=== PATIENT | female | born 1955 | race Caucasian/White ===

== ENCOUNTER → 2019-12-29 15:11 | Outpatient (CLI) | payer OTHER, SELFPAY ==
--- NOTE | ~2019-12-29 | MM_ITS ---
EXAMINATION: MM screening will BI w angela HISTORY: Screening mammogram TECHNIQUE: Craniocaudal and mediolateral oblique 3-D tomosynthesis images were obtained and synthetic 2-D images were generated. CAD analysis was submitted and interpreted. COMPARISON: Comparison to multiple prior studies sequentially, with oldest reviewed study dated 02/21. BREAST PARENCHYMAL COMPOSITION: There are scattered areas of fibroglandular density. FINDINGS: There is no evidence of suspicious mass, calcification, or architectural distortion to sugg est malignancy in either breast. There has been no suspicious interval change. IMPRESSION: 1. No mammographic evidence of malignancy. 2. Recommend routine screening mammography in one year. Routine yearly screening mammogram and regular clinical breast examination are recommended. Reviewed, dictated and finalized at location A. 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
== END ==
PROVIDERS: Visit Provider Nurse Practitioner Family
DX: Z12.31 Encounter for screening mammogram for malignant neoplasm of breast (principal)
CPT/HCPCS: 77063; 77067

== ENCOUNTER → 2020-10-20 10:36 | Outpatient (CLI) | payer OTHER, SELFPAY ==
--- NOTE | ~2020-10-20 | XR_ITS ---
EXAMINATION: XR chest 2V 10/20/2020 10:57 INDICATION: Positive TB test PROCEDURE: 2 view chest COMPARISON: 06/19/2018 FINDINGS: The lungs are clear. The cardiomediastinal silhouette is within normal limits. There are no pleural effusions. There is no pneumothorax suspected. IMPRESSION: 1: NO ACUTE CARDIOPULMONARY DISEASE. Reviewed, dictated and finalized at location A. 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
== END ==
DX: R76.12 Nonspecific reaction to cell mediated immunity measurement of gamma interferon antigen response without active tuberculosis (principal)
CPT/HCPCS: 71046

== ENCOUNTER 2021-10-21 15:08 | Emergency (ER) | payer OTHER, SELFPAY ==
[2021-10-21 15:20] VITALS: BP 141/88; PULSE 108; RESP 20; TEMP 38.1; O2SAT 96
--- NOTE | 2021-10-21 15:38 | ED.DENTAL ---
HPI - Dental/Oral General Chief complaint: Dental/Oral Stated complaint: Sore Tongue,Mouth Time Seen by Provider: 10/21/21 15:35 Source: patient Mode of arrival: ambulatory Limitations: no limitations History of Present Illness HPI Narrative: Jamila is a 66-year-old female patient who ambulated with a cane into the [facility]. Patient states for the last 2 days she has developed thrush-like symptoms. Patient states she has white patches on her tongue and mouth. Patient states she has had thrush 4 times in the last year. Patient has rheumatoid arthritis. 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 EYES: Denies visual changes, redness, or discharge. ENT: Denies rhinorrhea, congestion, sore throat, or otalgia.; +Spots and soreness to tongue CARDIOVASCULAR: Denies chest pain, palpitations, or edema. RESPIRATORY: Denies cough or dyspnea. GASTROINTESTINAL: Denies abdominal pain, nausea, vomiting, or diarrhea. GENITOURINARY: Denies dysuria or hematuria. SKIN: Denies rash, itching, or wounds. MUSCULOSKELETAL: Denies back pain, joint pain, or myalgia. NEUROLOGIC: Denies headache, numbness, tingling, or weakness. PSYCH: Denies depression or anxiety. All systems reviewed & are unremarkable except as noted in HPI and below PMFSH Family History Family History Grandparent Carcinoma of colon Family history of heart disease in male family member before age 55 Father Family history of type 2 diabetes mellitus Family history of heart disease in male family member before age 55 Mother Family history of diabetes mellitus in first degree relative Family history of heart disease in male family member before age 55 Other Diabetes mellitus Hypertension Social History Social History Smoking status: Former smoker Smoking end date: 11/05/96 Alcohol intake: current Comments At time of signature, I have reviewed and agree with nursing past medical, surgical, social and family history unless otherwise noted. Please see nursing chart for further information. There is no relevant family history pertinent to the presenting complaint Exam Narrative: GENERAL: Well-appearing, well-nourished, and in no acute distress. HEAD: Normocephalic, atraumatic. EYES: EOMI. No redness or drainage. Conjunctivae normal. ENT: Mucous membranes pink and moist. Nares clear. No rhinorrhea. TMs normal bilaterally. Throat normal. Uvula midline. Right raised lesions on tongue roof of mouth and gums NECK: Normal AROM. Supple. No lymphadenopathy. CHEST: No respiratory distress. Clear to auscultation. HEART: Regular rate and rhythm. No murmur appreciated. Normal peripheral pulses. ABDOMEN: Soft, nontender, nondistended, normal active bowel sounds. MUSCULOSKELETAL: No bony tenderness. EXTREMITIES: Normal range of motion. No edema. SKIN: Warm, dry, no rash. Capillary refill normal. Normal skin turgor. NEURO: No focal deficits. Alert and oriented x3. Gait steady. PSYCH: Normal affect. No signs of depression or anxiety. Course Vital Signs Vital signs: Vital Signs Temperature 38.1 C H 10/21/21 15:20 Pulse Rate 108 H 10/21/21 15:20 Respiratory Rate 20 10/21/21 15:20 Blood Pressure 141/88 H 10/21/21 15:20 Pulse Oximetry 96 10/21/21 15:20 Temperature 38.1 C H 10/21/21 15:20 Pulse Rate 108 H 10/21/21 15:20 Respiratory Rate 20 10/21/21 15:20 Blood Pressure 141/88 H 10/21/21 15:20 Pulse Oximetry 96 10/21/21 15:20 Reviewed MDM - D
== END 2021-10-21 15:48 | disposition home or self-care (01) ==
PROVIDERS: Emergency Provider Nurse Practitioner Family
DX: B37.0 Candidal stomatitis (principal); Z87.891 Personal history of nicotine dependence; I25.10 Atherosclerotic heart disease of native coronary artery without angina pectoris; E78.00 Pure hypercholesterolemia, unspecified; I10 Essential (primary) hypertension; E11.9 Type 2 diabetes mellitus without complications
CPT/HCPCS: 99213; G0463

== ENCOUNTER 2021-11-15 15:34 | Observation (INO) | payer OTHER, SELFPAY ==
--- NOTE | ~2021-11-15 | XR_ITS ---
EXAMINATION: XR chest 1V portable EXAM DATE: 11/15/2021 16:52 INDICATION: cough, fever,migrane x 2 months hx htn. TECHNIQUE: Portable AP frontal chest x-ray was obtained. Comparison is made to prior examination from 10/20/2020. FINDINGS: The lungs are clear. There are no pleural effusions. Cardiomediastinal silhouette is norm al. There is no pneumothorax suspected. The bones and soft tissues are unremarkable. IMPRESSION: No acute cardiopulmonary findings. Reviewed, dictated and finalized at location A. LFISH GROWER
[2021-11-15 15:40] VITALS: BP 145/69; PULSE 99; RESP 18; TEMP 38.1; O2SAT 94
--- NOTE | 2021-11-15 16:26 | ED.URI ---
HPI - URI/Sore Throat General Chief Complaint: Upper Respiratory Infection Stated Complaint: COUGH,SORE THROAT Time Seen by Provider: 11/15/21 16:04 Source: patient and RN notes reviewed Mode of arrival: ambulatory Limitations: no limitations History of Present Illness HPI Narrative: This is a 66 year old female who presents for evaluation of URI symptoms and she would like to know if she has covid or strep. Patient reports having productive cough for 2 months. This cough occurs daily but she reports it intermittently worsens. Last night he cough worsened and she was unable to sleep. She was prescribed singular, Augmentin and fluconazole 2 weeks ago. She developed runny nose, sore throat, headache last night. She was found to have fever in triage. She reports history of migraine headaches and she is complaining of headache consistent with migraine. She describes headache as vice prison librarian to her temples . She has nausea but no vomiting or diarrhea. She denies chest pain . She reports shortness of breath with exertion but states this is chronic. She is vaccinated for covid. She has also brought her to ER for evaluation of possible covid. Related Data Allergies Allergy/AdvReac Type Severity Reaction Status Date / Time adhesive Allergy Unknown Verified 01/01/17 14:18 atorvastatin Allergy Unknown Verified 01/01/17 14:18 latex Allergy Unknown Verified 04/01/14 10:13 naproxen Allergy Unknown Verified 01/01/17 14:18 Review of Systems Review of Systems: All systems reviewed & are unremarkable except as noted in HPI and below Constitutional: Constitutional: Reports fatigue and Reports fever(s) ENT: Reports nasal congestion and Reports sore throat Cardiovascular: Cardiovascular: Denies chest pain Respiratory: Respiratory: Reports cough, Reports dyspnea (chronic) and Reports wheezing Gastrointestinal: Gastrointestinal: Denies abdominal pain, Reports nausea and Denies vomiting Neurologic: Reports headache(s) [facility] Past Medical History Medical History (Updated 11/16/21 @ 01:22 by Neha Peralta MD) Diabetes mellitus Hyperlipidemia Hypertension Migraine Rheumatoid arthritis Surgical History Surgical History (Updated 11/15/21 @ 16:29 by Neha Peralta MD) History of cholecystectomy Family History Family History Grandparent Carcinoma of colon Family history of heart disease in male family member before age 55 Father Family history of type 2 diabetes mellitus Family history of heart disease in male family member before age 55 Mother Family history of diabetes mellitus in first degree relative Family history of heart disease in male family member before age 55 Other Diabetes mellitus Hypertension Social History Social History Smoking status: Former smoker Smoking end date: 11/05/96 Alcohol intake: current Exam Const: General: alert and ill appearing Orientation/consciousness: patient oriented x3 HENMT: Head: normocephalic and atraumatic Ears: TM's normal bilaterally Face and sinus: face symmetric Mouth: Yes Normal oral and palatal mucosa present, Yes lip normal, Yes oropharynx normal and Yes moist mucous membranes Throat: posterior oropharynx normal, tonsils normal and uvula midline Eyes: Pupils: Equal, round and reactive pupils present EOM: EOMs intact bilaterally Resp: Effort & Inspection: normal respiratory effort, not labored and not tachypneic Auscultation: wheezes Cardio: Rate: regular rate Rhythm: regular rhythm Heart sounds: no murmurs GI: GI Palp: Yes Soft to palpation, No Tenderness to palpation present (GI) and No Guarding due to palpation present (GI) Auscultation: normal bowel sounds Back/Spine/Pelvis: Back: no CVA tenderness Skin: General skin exam: normal color Rashes: no rashes Neuro: General: patient oriented x3, moves all extremitie
--- NOTE | 2021-11-15 16:28 | ECG_ITS ---
Measurements Intervals Orange Rate: 93 P: 58 NC: 187 QRS: 1 QRSD: 86 T: 20 QT: 365 QTc: 456 Interpretive Statements SINUS RHYTHM DELAYED PRECORDIAL R/S TRANSITION CONSIDER INFERIOR INFARCT, AGE INDETERMINATE ABNORMAL ECG Electronically Signed On 11-15-2021 20:06:32 SENIOR MECHANICAL TECHNICIAN by Ashkan Tapia D.O.
[2021-11-15] MEDS: SODIUM CHLORIDE 0.9% IV 1,000 ML 999 ML IV CONT (16:40)
[2021-11-15 16:43] LABS: Alveolar/Arterial O2 Gradient 42.6 mmHg; Base Excess ABG 3.8 mEq/l (+/-2.0); Carboxyhemoglobin 0.7 % THb (0-2.0); Fractional Inspired Oxygen 21 %; HCO3 ABG 27.2 mEq/l (22.0-26.0); Methemoglobin ABG 0.2 %THb (0-1.5); Oxygen Content ABG 17.2 %vol (16.0-22.0); Oxygen Saturation ABG 93.6 % (95.0-100.0); Oxyhemoglobin 91.2 % THb (90.0-100.0); PCO2 ABG 37.1 mmHg (35.0-45.0); PO2 ABG 62.7 mmHg (80.0-100.0); PO2 FiO2 Ratio Arterial Blood 2.99 %; Reduced Hemoglobin 7.9 %THb (0-5.0); Total Hemoglobin 13.4 g/dL (12.0-18.0); pH ABG 7.483 (7.350-7.450)
[2021-11-15 16:46] LABS: Device ROOM AIR; Modified Allen's Test Pass; Site Drawn LEFT RADIAL
[2021-11-15] MEDS: ALBUTEROL SULFATE (*SP) AEROSOL 1 PUFF 4 PUFF INHALATION (16:47)
[2021-11-15 16:49] LABS: Lactic Acid Reflex 1.1 mmol/L (0.7-2.1)
[2021-11-15 16:52] LABS: Alanine Aminotransferase 92 U/L (4-35); Albumin Level 4.5 g/dL (3.5-5.1); Alkaline Phosphatase 64 U/L (38-126); Anion Gap 9 mmol/L (8-16); Aspartate Amino Transferase 119 U/L (14-36); Bilirubin,Total 0.5 mg/dL (0.2-1.3); Blood Urea Nitrogen 12 mg/dL (7-17); Calcium 9.2 mg/dL (8.4-10.2); Carbon Dioxide 28 mmol/L (22-30); Chloride 99 mmol/L (98-107); Estimated CRCL calculation 83 ml/min; Estimated Glomerular Filt Rate > 60; Glucose 114 mg/dL (65-110); Potassium 4.6 mmol/L (3.4-5.0); Sodium 136 mmol/L (137-145)
[2021-11-15 17:40] LABS: Add Urine Microscopic? YES; Appearance Urine Clear (Clear); Bilirubin Urine Negative (Negative); Blood Urine Negative (Negative); Color Urine Amber (Yellow); Glucose Urine UA 3+ mg/dL (Negative); Ketones Urine Negative (Negative); Leukocyte Esterase Ur Negative LEU/UL (Negative); Mucus Urine Rare /lpf; Nitrate Urine Negative (Negative); Protein Urine Negative (Negative); Squamous Epithelial Cell Urine Many /hpf (Few); Urobilinogen Urine Negative mg/dL (<2.0); WBC Urine 0-3 /hpf
[2021-11-15 17:41] LABS: Specific Grav Ur 1.031 (1.001-1.035)
[2021-11-15 18:00] VITALS: BP 132/78; PULSE 78; RESP 20; O2SAT 98
[2021-11-15 18:23] LABS: INR 1.1; Prothrombin Time 13.6 Seconds (11.1-14.7)
[2021-11-15 18:26] LABS: D Dimer 0.27 ug/mL (<0.48)
[2021-11-15] MEDS: METOCLOPRAMIDE HCL INJ 10 MG/2 ML VIAL IV PUSH (19:08)
[2021-11-15] MEDS: diphenhydrAMINE HCl INJ 50 MG/ML VIAL 25 MG IV PUSH (19:08)
[2021-11-15 21:33] VITALS: BP 140/72; PULSE 80; RESP 20; O2SAT 98
--- NOTE | 2021-11-15 22:29 | ADMGEN ---
This patient, Krissy Weber, was admitted to 3 [facility] Surg Room 313-01. Patient/family oriented to hospital policies and general routines including ID bracelet, bed and alarms, visiting hours, pain management, procedures, bathroom and other care routines, personal items, smoking policy, room service/diet, and visiting hours. Information on how to activate the Rapid Response Team has been discussed. Patient/Family are encouraged to report perceived risks to care and to ask questions if they do not understand what they are told or what they should do.
[2021-11-15 22:52] VITALS: BP 114/63; PULSE 94; RESP 18; TEMP 36.5; O2SAT 97; BMI 41.4
[2021-11-15 23:16] LABS: SARS-CoV-2 RNA PCR Positive
[2021-11-16 01:06] VITALS: BP 129/62; PULSE 102; RESP 20; TEMP 36.6; O2SAT 92
[2021-11-16] MEDS: SODIUM CHLORIDE 0.9% IV 1,000 ML 125 ML IV CONT ×2 (01:50→09:51)
[2021-11-16 06:00] VITALS: BP 139/63; PULSE 101; RESP 20; TEMP 35.9; O2SAT 95
[2021-11-16 08:00] VITALS: BP 107/52; PULSE 97; RESP 16; TEMP 36.2; O2SAT 94; O2SAT 96
[2021-11-16 08:34] LABS: Basophils Percent Auto 0.4 % (0.2-1.2); Eosinophils Absolute Auto 0.1 K/mm3 (0-0.3); Eosinophils Percent Auto 2.1 % (0-4.4); Hematocrit 36.6 % (37.0-47.0); Hemoglobin 11.6 g/dL (12.0-15.0); Immature Granulocyte Absolute 0.03 K/mm3 (0.00-0.031); Immature Granulocyte Percent A 0.5 % (0-0.5); Lymphocytes Absolute Auto 1.53 K/mm3 (0.9-3.2); Lymphocytes Percent Auto 27.3 % (18.3-44.2); Mean Corpuscular HGB Conc 31.7 g/dl (32-36); Mean Corpuscular Hemoglobin 29.1 pg (26-34); Mean Corpuscular Volume 91.7 fl (80-100); Mean Platelet Volume 9.6 fl (7.4-10.4); Monocytes Absolute Auto 0.5 K/mm3 (0.1-0.6); Monocytes Percent Auto 9.5 % (2.6-8.5); Neutrophils Absolute Auto 3.4 K/mm3 (1.3-6.7); Neutrophils Percent Auto 60.2 % (45.5-73.1); Platelet Count Result 162 k/mm3 (150-375); Red Blood Count 3.99 M/mm3 (4.2-5.4); Red Cell Distribution Width 14.6 % (11.5-14.5); White Blood Count 5.6 K/mm3 (4.5-10.0)
[2021-11-16 08:53] LABS: Glucose Point of Care 116 mg/dl (65-105)
[2021-11-16 09:28] LABS: Alanine Aminotransferase 77 U/L (4-35); Albumin Level 3.8 g/dL (3.5-5.1); Alkaline Phosphatase 59 U/L (38-126); Anion Gap 14 mmol/L (8-16); Aspartate Amino Transferase 69 U/L (14-36); Bilirubin,Total 0.4 mg/dL (0.2-1.3); Blood Urea Nitrogen 16 mg/dL (7-17); Calcium 8.5 mg/dL (8.4-10.2); Carbon Dioxide 21 mmol/L (22-30); Chloride 103 mmol/L (98-107); Estimated CRCL calculation 85 ml/min; Estimated Glomerular Filt Rate > 60; Glucose 121 mg/dL (65-110); Potassium 4.2 mmol/L (3.4-5.0); Sodium 138 mmol/L (137-145)
[2021-11-16] MEDS: DEXAMETHASONE 2 MG TABLET 6 MG PO (09:50)
--- NOTE | 2021-11-16 10:30 | PM.SD2 ---
Same Day Admit/Disch: HPI History of Present Illness Chief complaint: PUI COVID, COPD exacerbation Narrative: Krissy Weber is a 66 year old female with a past medical history of hypertension, hyperlipidemia, diabetes mellitus who presented to the ED for evaluation of upper respiratory infection. Patient stated that she has had a cough for about 2 months with increased wheezes and shortness of breath. Patient was placed on amoxicillin for the last 2 weeks. Patient stated that she called her lung doctor and that is who gave her the amoxicillin along with Singulair. She has had a cough that has been productive that she described as milky gold. She also stated that she has been a bit lightheaded and dizzy however, she is very tired. She was also having nausea yesterday but not today. She denies abdominal pain, vomiting, chest pain, constipation, diarrhea, body aches, weakness. She did state that she is has having sinus congestion with a sore throat. She denies being around sick contacts and stated that she has never been on halls. She also has been experiencing a lot of sweats and evidently had a fever in the ED of 100.5. patient states that she is really worried about her who is quite a bit older than her and probably also has COVID and was at home yesterday. Patient denies any shortness of breath. Patient is vaccinated and felt like she was staying ahead of being COVID positive. Is according to patient's MyChart on the portal it shows that the patient also had active strep a however patient has been on Augmentin for the past 2 weeks which should of cover that. Patient is being admitted in observational status to the hospitalist service [facility] Past Medical History Medical History (Updated 11/16/21 @ 15:28 by PASCUAL Cano) Diabetes mellitus Hyperlipidemia Hypertension Migraine Rheumatoid arthritis Surgical History Surgical History History of cholecystectomy Family History Family History Grandparent Carcinoma of colon Family history of heart disease in male family member before age 55 Father Family history of type 2 diabetes mellitus Family history of heart disease in male family member before age 55 Mother Family history of diabetes mellitus in first degree relative Family history of heart disease in male family member before age 55 Other Diabetes mellitus Hypertension Social History Social History Social History: patient lives at home with her Sivakumar. Patient has 2 kids who are grown 1 boy 1 girl which she states that her voice is mentally disabled. Patient denies having any pets. Patient is Judaism however she states she has more Methodist now. She wants to be a full code at this time . And wants to make Sivakumar her her surrogate if anything were to happen. 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
[2021-11-16 12:00] VITALS: BP 112/53; PULSE 94; RESP 18; TEMP 36.4; O2SAT 94
[2021-11-16 12:19] LABS: Glucose Point of Care 121 mg/dl (65-105)
[2021-11-16 14:00] VITALS: BP 123/62; PULSE 97; RESP 16; TEMP 36.4; O2SAT 95
[2021-11-16] MEDS: ONDANSETRON INJ 4 MG/2 ML VIAL IV PUSH (15:01)
== END 2021-11-16 16:50 | disposition home or self-care (01) ==
LOC: ANHED 17:29 → ANH3MEDSUR 21:32
PROVIDERS: Nurse Practitioner; Admitting Provider Hospitalist; Emergency Provider General Practice; Visit Provider Hospitalist
DX: U07.1 COVID-19 (principal); J44.0 Chronic obstructive pulmonary disease with (acute) lower respiratory infection; J12.82 Pneumonia due to coronavirus disease 2019; I10 Essential (primary) hypertension; E78.5 Hyperlipidemia, unspecified; E11.9 Type 2 diabetes mellitus without complications; M06.9 Rheumatoid arthritis, unspecified; Z87.891 Personal history of nicotine dependence; Z79.4 Long term (current) use of insulin; Z79.51 Long term (current) use of inhaled steroids
CPT/HCPCS: 36415; 36600; 71045; 80053; 81001; 82375; 82805; 82948; 83050; 83605; 85025; 85380; 85610; 85730; 86140; 87081; 87804; 87880; 93005; 96361; 96365; 96375; 99285; A9270; C9803; G0378; J0131; J1100; J1200; J2405; J2765; J7030; J8540; U0003; U0005